=== PATIENT | female | born 1960 | race Caucasian/White ===

== ENCOUNTER 2016-07-31 14:11 | Emergency (ER) | payer MEDICAID, OTHER ==
[~2016-07-31] VITALS: Ht 170.2 cm; Wt 70.0 kg
[~2016-07-31 14:11] MED LIST: LEVO500T15 PO; METR250T PO
[2016-07-31] MEDS ORDERED: KETOROLAC 60MG/2ML VIAL IM ONE (15:30)
[2016-07-31] MEDS ORDERED: SODIUM CHLORIDE 0.9% 1,000 ML IV ONE (15:42)
[2016-07-31] MEDS ORDERED: MORPHINE SULFATE 4 MG/ML CPJ (NOT FOR IM USE) IV STA (15:42)
[2016-07-31] MEDS ORDERED: ONDANSETRON HCL 4MG/2ML VIAL IV STA (15:42)
[2016-07-31] MEDS ORDERED: MORPHINE SULFATE 10 MG/ML CPJ IM ONE (16:45)
[2016-07-31] MEDS ORDERED: KETOROLAC 30MG/ML VIAL IM ONE (16:45)
[2016-07-31] MEDS ORDERED: ONDANSETRON 4MG ODT PO ONE (16:45)
[2016-07-31 18:00] VITALS: BP 170/79
== END 2016-07-31 18:27 | disposition home or self-care (01) ==
LOC: ER 14:19
DX: S83.92XA Sprain of unspecified site of left knee, initial encounter (principal); M25.462 Effusion, left knee; M17.12 Unilateral primary osteoarthritis, left knee; I10 Essential (primary) hypertension; Z88.0 Allergy status to penicillin; V03.19XA Pedestrian with other conveyance injured in collision with car, pick-up truck or van in traffic accident, initial encounter; Y93.89 Activity, other specified; Y92.480 Sidewalk as the place of occurrence of the external cause
CPT/HCPCS: 73562; 73590; 96372; 99284; J1885; J2270; J2405; J7040; L1830; Q0162; Z7610; J7030

== ENCOUNTER 2017-05-17 09:37 | Emergency (ER) | payer OTHER ==
[~2017-05-17] VITALS: Ht 154.9 cm; Wt 73.0 kg
[~2017-05-17 09:37] MED LIST changes: -LEVO500T15 PO; +LEVO500T2 PO
[2017-05-17 09:46] VITALS: BP 171/89
[2017-05-17] MEDS ORDERED: IBUPROFEN 600MG TABLET PO ONE (11:00)
== END 2017-05-17 11:55 | disposition home or self-care (01) ==
LOC: ER 10:15
DX: S89.92XA Unspecified injury of left lower leg, initial encounter (principal); S89.91XA Unspecified injury of right lower leg, initial encounter; M19.90 Unspecified osteoarthritis, unspecified site; F11.10 Opioid abuse, uncomplicated; Z88.0 Allergy status to penicillin; W19.XXXA Unspecified fall, initial encounter; Y93.89 Activity, other specified; Y92.89 Other specified places as the place of occurrence of the external cause; Y99.8 Other external cause status
CPT/HCPCS: 73562; 99284; Z7610

== ENCOUNTER 2018-09-19 05:12 | Emergency (ER) | payer MEDICAID, OTHER ==
[~2018-09-19] VITALS: Ht 160 cm; Wt 82.0 kg
[2018-09-19] MEDS ORDERED: HYDROCODONE/ACETAMINOPHEN 10/325MG TABLET PO ONE (06:45)
[2018-09-19] MEDS ORDERED: ACETAMINOPHEN 500MG TABLET PO ONE (06:45)
[2018-09-19 08:52] VITALS: BP 136/61
== END 2018-09-19 08:58 | disposition home or self-care (01) ==
LOC: ER 05:30
DX: G89.29 Other chronic pain (principal); M25.562 Pain in left knee; F17.200 Nicotine dependence, unspecified, uncomplicated; M19.90 Unspecified osteoarthritis, unspecified site; Z88.0 Allergy status to penicillin; Z96.659 Presence of unspecified artificial knee joint
CPT/HCPCS: 99283; L1830; Z7610

== ENCOUNTER 2020-09-20 12:43 | Emergency (ER) | payer MEDICAID ==
[~2020-09-20] VITALS: Ht 154.9 cm; Wt 82.0 kg
[2020-09-20 13:01] VITALS: BP 165/75
[2020-09-20] MEDS ORDERED: IBUP-2028 MT (18:39)
== END 2020-09-20 15:08 | disposition left against medical advice (07) ==
LOC: ER 13:22
DX: Z53.21 Procedure and treatment not carried out due to patient leaving prior to being seen by health care provider (principal)

== ENCOUNTER 2020-09-20 16:07 | Emergency (ER) | payer MEDICAID ==
[~2020-09-20] VITALS: Ht 154.9 cm; Wt 82.0 kg
[2020-09-20] MEDS ORDERED: ACETAMINOPHEN 325MG TABLET PO ONE (17:00)
[2020-09-20] MEDS ORDERED: IBUP-2028 MT (18:39)
[2020-09-20 18:48] VITALS: BP 146/66
== END 2020-09-20 18:49 | disposition home or self-care (01) ==
LOC: ER 16:07
DX: S09.90XA Unspecified injury of head, initial encounter (principal); M25.511 Pain in right shoulder; I10 Essential (primary) hypertension; Z88.0 Allergy status to penicillin; Z98.890 Other specified postprocedural states; Y04.0XXA Assault by unarmed brawl or fight, initial encounter; Y93.89 Activity, other specified; Y92.89 Other specified places as the place of occurrence of the external cause; Y99.8 Other external cause status
CPT/HCPCS: 73030; 73060; 99284

== ENCOUNTER 2021-10-11 05:37 | Emergency (ER) | payer MEDICAID, OTHER ==
[~2021-10-11] VITALS: Ht 152.4 cm; Wt 75.0 kg
[~2021-10-11 05:37] MED LIST changes: +IBUP-2028 MT
[2021-10-11] MEDS ORDERED: IBUPROFEN 400MG TABLET PO ONE (06:30)
[2021-10-11 06:47] VITALS: BP 149/80
== END 2021-10-11 07:49 | disposition left against medical advice (07) ==
LOC: ER 05:37
DX: M25.561 Pain in right knee (principal); Z88.0 Allergy status to penicillin; W01.0XXA Fall on same level from slipping, tripping and stumbling without subsequent striking against object, initial encounter; Y93.89 Activity, other specified; Y92.018 Other place in single-family (private) house as the place of occurrence of the external cause
CPT/HCPCS: 99282